=== PATIENT | female | born 1940 | race Caucasian/White ===

== ENCOUNTER 2017-10-27 13:58 | Inpatient (IN) | payer OTHER ==
[2017-10-27] MEDS ORDERED: ZOFRAN ODT PO STA (15:31)
[2017-10-27] MEDS ORDERED: SODIUM CHLORIDE 1,000 ML IV STA (15:36)
[2017-10-27] MEDS ORDERED: PROTONIX IV IVP STA (15:37)
--- NOTE | 2017-10-27 15:38 | ED.PDOC ---
General ED Provider: Dr. CHRISTOPHER OWUSU Chief Complaint: Nausea/Vomiting Stated Complaint: Onset of feeling bad last evening. Has has mutiple episodes on vomiting. Feels week, dizzy and shaky. Very apprehensive over coming to the ER and being stuck with needles. Very anxious. State she never gets sick but think she has the flu. Describes emesis as creamed coffee color. Time Seen by Physician: 14:40 Mode of Arrival: Walk-In Information Source: Patient, Family Exam Limitations: No limitations Nursing and Triage Documentation Reviewed and Agree: Yes Reviewed sepsis parameters & appropriate labs ordered?: Yes System Inflammatory Response Syndrome: Not Applicable Sepsis Protocol: For patient's 13 years and over: Temp is 96.8 and below OR 101 and greater Pulse >90 BPM Resp >20/minute Acutely Altered Mental Status Are patient's symptoms suggestive of a new infection, such as: -Pneumonia -Skin, Soft Tissue -Endocarditis -UTI -Bone, Joint Infection -Implantable Device -Acute Abdominal Infection -Wound Infection -Meningitis -Blood Stream Catheter Infection -Unknown System Inflammatory Response Syndrome: Not Applicable GI Complaint Exam - Vomiting/Diarrhea Complaint/Exam Onset/Duration: Last evening Symptoms Are: Still present Episodes of Vomiting over last 24 Hours: 8 Initial Severity: Moderate Current Severity: Mild Character of Vomiting: Reports: Bilious (Coffee with creamer color) Aggravating: Reports: Liquids, Movement Alleviating: Reports: None Associated Signs and Symptoms: Reports: Dizziness, Light-headedness, Abdominal pain Kussmaul Respirations Present: No Differential Diagnoses: Viral Gastroenteritis, UTI Review of Systems - Review Of Systems Constitutional: Reports: Weakness, Loss of appetite Eyes: Reports: No symptoms Ears, Nose, Mouth, Throat: Reports: No symptoms Respiratory: Reports: No symptoms Cardiac: Reports: No symptoms GI: Reports: Nausea, Vomiting : Reports: No symptoms Musculoskeletal: Reports: No symptoms Skin: Reports: No symptoms Neurological: Reports: Anxiety Endocrine: Reports: No symptoms Hematologic/Lymphatic: Reports: No symptoms All Other Systems: Reviewed and Negative Past Medical History - Past Medical History Previously Healthy: Yes Endocrine: Reports: None Cardiovascular: Reports: None, Other (Denies Hypertension ) Respiratory: Reports: None Hematological: Reports: None Gastrointestinal: Reports: Unknown Genitourinary: Reports: None Neuro/Psych: Reports: None Musculoskeletal: Reports: None Cancer: Reports: None Last Menstrual Period: 1996 - Surgical History General Surgical History: Reports: None - Family History Family History: Reports: None - Social History Smoking Status: Former smoker Hx Substance Use: No Alcohol Screening: None - Immunizations Tetanus Shot up to Date: No Physical Exam - Physical Exam Appearance: Ill-appearing, Well-nourished Ill-appearing: Moderate Pain Distress: Mild Eyes: VARGAS, EOMI, Conjunctiva clear ENT: Ears normal, Nose normal, Oropharynx normal Neck: Supple Respiratory: Airway patent, Breath sounds clear, Breath sounds equal Cardiovascular: RRR, Pulses normal, No rub, No murmur GI/: Soft, Tender, Bowel sounds hypoactive Musculoskeletal: Normal strength, ROM intact Skin: Warm, Dry, Pale Neurological: Sensation intact, Motor intact Psychiatric: Affect appropriate, Mood appropriate Re-Evaluation - Re-Evaluation Time of Re-Evaluation: 19:00 Status: Improved (but still nauseated and spitting up ) Vital Signs Stable: Yes Appearance: NAD Lungs: Clear Skin: Warm and Dry Neuro: Alert and Oriented X3 CV: RRR (Recommend admisson for further treatment-patient and son agree) Critical Care Note - Critical Care Note Total Time (mins): 30 Course - Course Hematology/Chemistry: 10/27/17 15:50 10/27/17 15:50 Orders, Labs, Meds: Lab Review 10/27/17 10/27/17 10/27/17 15:50 15:50 15:50 WBC 9.84 RBC 5.15 Hgb 14.1 Hct 42.8 MCV 83.1 MCH 27.4 MCHC 32.9 RDW Coeff of Summer 14.0 Plt Count 300 Immature Gran % (Auto) 0.3 Neut % (Auto) 78.0 Lymph % (Auto) 12.5 Rhea % (Auto) 6.5 Eos % (Auto) 2.6 Baso % (Auto) 0.1 Immature Gran # (Auto) 0.0 Neut # 7.7 H Lymph # 1.2 Rhea # 0.6 Eos # 0.3 Baso # 0.0 Sodium 139 Potassium 2.9 L Chloride 88 L Carbon Dioxide 33 H Anion Gap 20.9 BUN 9 Creatinine 0.97 Estimated GFR (MDRD) 56.00 BUN/Creatinine Ratio 9.27 Glucose 121 H Calcium 10.9 H Total Bilirubin 0.6 AST 24 ALT 11 L Alkaline Phosphatase 92 Troponin I 0.0230 Total Protein 9.1 H Albumin 4.1 Globulin 5.0 Albumin/Globulin Ratio 0.82 Lipase 16 Influenza A (Rapid) Influenza B (Rapid) Blood Type B POSITIVE Antibody Screen Negative 10/27/17 16:15 WBC RBC Hgb Hct MCV MCH MCHC RDW Coeff of Summer Plt Count Immature Gran % (Auto) Neut % (Auto) Lymph % (Auto) Rhea % (Auto) Eos % (Auto) Baso % (Auto) Immature Gran # (Auto) Neut # Lymph # Rhea # Eos # Baso # Sodium Potassium Chloride Carbon Dioxide Anion Gap BUN Creatinine Estimated GFR (MDRD) BUN/Creatinine Ratio Glucose Calcium Total Bilirubin AST ALT Alkaline Phosphatase Troponin I Total Protein Albumin Globulin Albumin/Globulin Ratio Lipase Influenza A (Rapid) Negative by naat Influenza B (Rapid) Negative by naat Blood Type Antibody Screen Orders Category Date Time Status EKG-(ED ONLY) Stat CARDIO 10/27/17 14:58 Completed CBC W/ AUTO DIFF Stat LAB 10/27/17 15:50 Completed CMP [COMPREHENSIVE METABOLIC PANEL] Stat LAB 10/27/17 15:50 Completed FLU A & B MOLECULAR [FLU A/B MOLECULAR] Stat LAB 10/27/17 16:15 Completed LIPASE Stat LAB 10/27/17 15:50 Completed TROPONIN I Stat LAB 10/27/17 15:50 Completed TYPE AND SCREEN Stat LAB 10/27/17 15:50 Completed URINALYSIS C & S IF INDICATED Stat LAB 10/27/17 15:34 Uncollected Metoprolol Tartrate [Lopressor] MEDS 10/27/17 18:59 Stat 25 mg PO ONCE STA Ondansetron HCl/Pf [Zofran 4 mg/2 ml] MEDS 10/27/17 19:01 Stat 4 mg IVP ONCE STA Ondansetron [Zofran Odt] MEDS 10/27/17 15:31 Discontinued 4 mg PO ONCE STA Pantoprazole Sodium [Protonix IV] MEDS 10/27/17 15:37 Discontinued 40 mg IVP ONCE STA Potassium Chloride Additive [Potassium Chloride 20 Meq MEDS 10/27/17 19:14 Ordered Vial-Additive Only] 20 meq 0.9 % Sodium Chloride [Sodium Chloride] 100 ml IV ONCE Sodium Chloride 0.9% [Sodium Chloride] 1,000 ml MEDS 10/27/17 15:36 Discontinued IV BOLUS Medications Generic Name Dose Route Start Last Admin Trade Name Freq PRN Reason Stop Dose Admin Potassium Chloride 20 meq/ 110 mls @ 50 mls/hr 10/27/17 19:14 Sodium Chloride IV 10/27/17 21:25 ONCE STA Discontinued Medications Generic Name Dose Route Start Last Admin Trade Name Chantelle PRN Reason Stop Dose Admin Sodium Chloride 1,000 mls @ 500 mls/hr 10/27/17 15:36 10/27/17 16:18 Sodium Chloride IV 10/27/17 17:35 500 mls/hr BOLUS STA Administration Metoprolol Tartrate 25 mg 10/27/17 18:59 10/27/17 19:17 Lopressor PO 10/27/17 19:00 25 mg ONCE STA Administration Ondansetron HCl 4 mg 10/27/17 15:31 10/27/17 15:37 Zofran Odt PO 10/27/17 15:32 4 mg ONCE STA Administration Ondansetron HCl 4 mg 10/27/17 19:01 10/27/17 19:18 Zofran 4 Mg/2 Ml IVP 10/27/17 19:02 4 mg ONCE STA Administration Pantoprazole Sodium 40 mg 10/27/17 15:37 10/27/17 16:10 Protonix Iv IVP 10/27/17 15:38 40 mg ONCE STA Administration Vital Signs: Temp Pulse Resp BP Pulse Ox 10/27/17 13:58 98.4 F 105 H 16 180/92 H 95 Departure - Departure Time of Disposition: 19:30 Disposition: ADMITTED INPATIENT Discharge Problem: Gastroenteritis Condition: Fair Pt referred to PMD for follow-up: Yes IPMP verified?: No Additional Instructions: Discussed with Dr Regalado who agrees to admit patient and continue IV rehydration Allergies/Adverse Reactions: Allergies No Known Allergies Allergy (Unverified 10/27/17 14:20) Home Medications: Ambulatory Orders 1 [No Reported Medications] 10/27/17 Disposition Discussed With: Patient, Family (Agreed admission to hosptial to service of Dr Kuo)
[2017-10-27] MEDS ORDERED: LOPRESSOR PO STA (18:59)
[2017-10-27] MEDS ORDERED: ZOFRAN 4 MG/2 ML IVP STA (19:01)
[2017-10-27] MEDS ORDERED: POTASSIUM CHLORIDE 20 MEQ VIAL-ADDITIVE ONLY 20 MEQ in SODIUM CHLORIDE 100 ML IV STA (19:14)
[2017-10-27] MEDS ORDERED: POTASSIUM CHLORIDE 20 MEQ VIAL-ADDITIVE ONLY IV ONE (19:24)
[2017-10-27] MEDS ORDERED: XANAX PO STA (19:35)
--- NOTE | 2017-10-27 20:08 | CT ---
EXAM: CT brain without contrast HISTORY: Headache TECHNIQUE: Multi-slice transaxial helical with coronal and sagital reformated images COMPARISON: None FINDINGS: The midline structures are central. The ventricles are neither dilated nor displaced. Th e sulci are slightly prominent at the high convexities. Moderate low attenuation in the supratentoria l white matter is nonspecific but is likely related to chronic microvascular ischemic disease. No ac [place] intraparenchymal or extraaxial hemorrhagic collections are detected. The calvarium is intact. The visible paranasal sinuses and mastoid air cells are clear. IMPRESSION: 1. No acute intracranial process. 2. Minimal age-related involution and moderate supratentorial chronic microvascular ischemic disease .
--- NOTE | 2017-10-27 20:19 | CT ---
EXAM: CT abdomen and pelvis without contrast HISTORY: Abdominal pain with nausea and vomiting TECHNIQUE: Multi-slice transaxial helical with coronal and sagittal reformed images COMPARISON: None FINDINGS: The heart is mildly enlarged. No pericardial or pleural effusions are detected. The depen dent lungs are atelectatic. The hepatic attenuation is normal relative to the spleen. There are calculi within the gallbladder l umen. The gallbladder peralta are slightly prominent. The common bile duct is slightly prominent. Mu ltiple small calculi are suggested in the distal common bile duct as best appreciated on coronal imag e number 36. The common bile duct is mildly dilated to 8 mm proximal to this region. The pancreatic duct has normal caliber. The pancreas has normal attenuation. There is nodular thickening of the l eft adrenal gland. The largest nodule in the left adrenal gland is 2.4 x 8 1.16 with average Houn[place]d attenuation of 6. An additional left adrenal nodule is 1.7 x 1.4 cm with average Hounsfield atte nuation of 0. The right adrenal gland is normal. The spleen has normal size and attenuation. A small simple cyst is noted at the inferior pole of the left kidney. The kidneys otherwise have nor mal attenuation. Ureters are nondilated. The nonopacified bladder is normal. There are multiple pr obable involuted fibroids. The largest cyst at the uterine fundus with dense calcifications measurin g 4.9 cm. No adnexal lesions are detected. The intestines including appendix have normal caliber. Diverticula arise from the large bowel diffus hayden without CT evidence of diverticulitis. No lymphadenopathy or ascites are appreciated. The bones are free of suspicious osteolytic or osteoblastic lesions. IMPRESSION: 1. Cholelithiasis with possible gallbladder wall thickening. Acute cholecystitis cannot be excluded . In addition, suggestion of choledocholithiasis with multiple small common duct calculi and mild ex trahepatic biliary dilatation. Recommend correlation with a right upper quadrant sonogram. 2. Aortic atherosclerosis. 3. Uterine fibroids. 4. Colonic diverticulosis without CT evidence of diverticulitis. 5. Simple cyst at the inferior pole of the right kidney. 6. Two benign left adrenal adenomas.
[2017-10-27 20:23] VITALS: BMI 23.5
[2017-10-27] MEDS ORDERED: ROCEPHIN 1 GM in SODIUM CHLORIDE 50 ML IV SCH (21:00)
[2017-10-27] MEDS ORDERED: FLAGYL 500 MG/100 ML 100 ML IV ONE (22:49)
[2017-10-27] MEDS ORDERED: ROCEPHIN ONE (22:49)
[2017-10-27] MEDS: FLAGYL 500 MG/100 ML 500 MG in PREMIX 100 ML NS 1 BAG IV SCH (22:54)
[2017-10-28] MEDS ORDERED: TRANDATE IVP STA (02:06)
[2017-10-28] MEDS ORDERED: FLAGYL 500 MG/100 ML 100 ML IV ONE (05:06)
[2017-10-28] MEDS: FLAGYL 500 MG/100 ML 500 MG in PREMIX 100 ML NS 1 BAG IV SCH ×3 (05:10→22:36)
[2017-10-28] MEDS ORDERED: POTASSIUM CHLORIDE 20 MEQ VIAL-ADDITIVE ONLY 20 MEQ in SODIUM CHLORIDE 100 ML IV STA (07:15)
[2017-10-28] MEDS ORDERED: K-DUR PO STA (07:17)
[2017-10-28] MEDS: ZESTRIL PO SCH ×2 (09:05→21:17)
[2017-10-28] MEDS ORDERED: ROCEPHIN 1 GM in SODIUM CHLORIDE 50 ML IV SCH (21:00)
[2017-10-28] MEDS ORDERED: ATIVAN PO ONE (21:54)
[2017-10-29] MEDS: FLAGYL 500 MG/100 ML 500 MG in PREMIX 100 ML NS 1 BAG IV SCH ×2 (04:58→13:27)
[2017-10-29] MEDS ORDERED: CITRATE OF MAGNESIA PO STA (09:01)
[2017-10-29] MEDS: ZESTRIL PO SCH (09:09)
[2017-10-29 10:17] VITALS: BP 118/69; TEMP 97.7
--- NOTE | 2017-10-29 12:59 | HP ---
DATE OF SERVICE: 10/27/17 CHIEF COMPLAINT: Nausea and vomiting. HISTORY OF PRESENT ILLNESS: This is a 76-year-old female, who has never seen a doctor in 30 years. She became sick with vomiting yesterday evening. Early in the morning she started vomiting brown liquid and the whole days she was vomiting on and off, unable to keep anything down. She had a BM yesterday and was constipated. She had mid epigastric pain and back pain, sharp in type, radiating, rated 4/10. She was seen by ER physician, Dr. Alicea. White count normal. Temperature afebrile. Potassium was 2.9, glucose 121. At that time, the patient was admitted to the hospital with hypokalemia and dehydration. Given her history of blood pressure elevation and abdominal pain, I did tell them to order a CT of the abdomen and pelvis and CT head. CT of the abdomen showed chronic cholecystitis vs acute but the patient does not have any localizing signs on the belly other than epigastric discomfort but no right upper quadrant tenderness. At that time, the patient is admitted to the hospital for IV hydration, potassium and IV antibiotics. REVIEW OF SYSTEMS: CONSTITUTIONAL: No fever, no chills. HEENT: Normal. ENDOCRINE: No weight gain; no weight loss. CVS: No chest pain. No PND, no orthopnea. No shortness of breath. No PND, no orthopnea. RESPIRATORY: No cough, no congestion. No hemoptysis. GI: Nausea and vomiting. Epigastric pain. No melena. : No hematuria. No polyuria. MUSCULOSKELETAL: No joint swelling. PSYCHIATRIC: Not anxious. No depression. No suicidal thoughts. No homicidal thoughts. SKIN: Intact, no open lesions. PAST MEDICAL HISTORY: Last time she saw a doctor was 30 years ago. She has a history of hypertension but does not take any medication. PAST SURGICAL HISTORY: None PERSONAL HISTORY: Does not smoke or drink. FAMILY HISTORY: Significant for heart problems. MEDICATIONS: (HOME) None ALLERGIES: NKDA PHYSICAL EXAMINATION: V/S: BP 180/92 then 200/91, respiratory rate 20, heart rate 88, temperature 97.7. HEENT: Atraumatic, normocephalic. No scleral icterus. Pallor positive. Mucosa dry. NECK: Supple. No JVD, no bruit. No lymphadenopathy. No thyromegaly. HEART: S1, S2 normal. Positive systolic murmur. No cyanosis or clubbing. No ascites. LUNGS: Decreased and clear to auscultation. No rales or rhonchi. ABDOMEN: Epigastric discomfort present. Soft. Bowel sounds are active. No CVA tenderness. No rigidity or guarding. EXTREMITIES: No pedal edema. No cyanosis or clubbing MUSCULOSKELETAL: Normal joints, no swelling. NEUROLOGIC: The patient is awake and alert. SKIN: Intact; no open lesions. LYMPHATIC: No lymph nodes palpable. LABS: Sodium 139, potassium 2.9, chloride 88, bicarb 33, BUN 9, creatinine 0.97, glucose normal. AST/ALT normal. Total bilirubin is normal. White count 9.84, hemoglobin 14.1, hematocrit 32.8, platelet count 300. ASSESSMENT: 1. ACUTE GASTROENTERITIS 2. CHRONIC CHOLECYSTITIS 3. HYPERTENSION 4. ANXIETY 5. HYPOKALEMIA, SEVERE PLAN: 1. Admit the patient to the regular floor. 2. CBC and CMP today and daily. 3. Cardiac enzymes and troponin. 4. IV fluids with potassium. 5. Rocephin and Flagyl. 6. Xanax for night. TIME SPENT: MORE THAN 75 minutes for admission. [facility]
--- NOTE | 2017-10-29 14:25 | PN ---
DATE OF SERVICE: 10/28/17 SUBJECTIVE: The patient was admitted with gastroenteritis, hypokalemia. CT did show some cholecystitis but the patient does not have any abdominal pain, nausea, vomiting and no fever or chills right now. REVIEW OF SYSTEMS: CONSTITUTIONAL: No fever, no chills. HEENT: Normal. ENDOCRINE: No weight gain, no weight loss. CVS: No angina symptoms. No CHF symptoms. No palpitations. No atypical chest pain for CAD. No shortness of breath. No PND, no orthopnea. RESPIRATORY: No cough, no hemoptysis. GI: No nausea, no vomiting. No abdominal pain. : No hematuria. No polyuria. MUSCULOSKELETAL: No joint swelling. PSYCHIATRIC: Not anxious. No depression. No suicidal thoughts. No homicidal thoughts. SKIN: Intact. No rash. PHYSICAL EXAMINATION: V/S: Blood pressure 197/81, respiratory rate 21, heart rate 71, temperature 98.4 with saturation 97 on the room air. HEENT: Normocephalic, atraumatic. Mucosa dry. Pallor positive. No icterus. NECK: Supple. No JVD, no carotid bruit. No lymphadenopathy. LUNGS: Clear to auscultation. No rales or rhonchi. HEART: S1, S2 normal. No S3. No murmur, gallop or regurgitation. ABDOMEN: Soft, nontender. No epigastric tenderness. No right upper quadrant tenderness. Bowel sounds active. No rigidity. No rebound or guarding. No CVA tenderness. EXTREMITIES: No pedal edema. No clubbing or cyanosis MUSCULOSKELETAL: No joint swelling. NEUROLOGIC: Awake, alert, oriented times three. No focal deficit. LYMPHATIC: No lymph nodes palpable. SKIN: Intact. LABS: WBC 12.84, hgb 12.1, hct 35.7, plt count 233, sodium 139, potassium 2.9, chloride 96, bicarb 31, BUN 15, creatinine 0.88 and glucose 150. ASSESSMENT: 1. Acute gastroenteritis 2. Severe hypokalemia 3. Chronic cholecystitis 4. Hypertension PLAN: 1. CT scan findings discussed with the patient in detail Explained as patient does not have any symptoms of the gallbladder only CAT scan is showing it. No right upper quadrant tenderness. No fever, no chills, no nausea and vomiting. 2. We are going to treat with IV antibiotic Rocephin and Flagyl 3. Start the patient on the Lisinopril 20mg twice a day Will follow the patient in daily rounds. TIME SPENT: More than 35 minutes MTDD
--- NOTE | 2017-11-08 10:54 | DS ---
DATE OF SERVICE: 10/29/17 FINAL DIAGNOSIS: 1. Acute gastroenteritis 2. Severe hypokalemia 3. Cholelithiasis with no clinical symptoms of right upper quadrant tenderness of Adams sign; no fever and no elevated white count. 4. Hypertension, no medication but will be starting on Lisinopril now. 5. Anxiety disorder will start on Xanax 0.25 twice a day DISCHARGE INSTRUCTIONS: Discharge the patient home. Followup in the office within one week. MEDICATIONS AT DISCHARGE/NEW PRESCRIPTIONS: Cipro 250mg twice a day for 5 days Lisinopril 20mg PO daily Xanax 0.25mg twice a day DIET INSTRUCTIONS: Soft diet for one week. ACTIVITY: As much as tolerated. SMOKING: Former smoker DISEASE SPECIFIC EDUCATION: Cholelithiasis Risk of gallbladder attack with fatty meal been discussed and verbalized understanding. HOSPITAL COURSE: Diana Pringle who is a 76 year old female never seen an doctor in 30 years came to the emergency room with nausea, vomiting, diarrhea. Potassium was 4.9. Dr. Castano saw the patient and admitted the patient. The patient did have some epigastric tenderness, normal WBC with no fever and chills. With the given history of being to the doctors for 30 years I ordered a [address] of abdomen and pelvis which did show Choledochal Cholelithiasis but normal AST and ALT and normal Alkaline phosphatase. The patient did not have any Adams sign. WBC was normal with no fever or chills, not septic. Admitted the hospital started on the Rocephin and Flagyl and replaced the Potassium. Came up from 2.9, 2.9 then 3.4. The patient's stay during the hospital was uneventful. The patient was perfectly fine. Blood pressure was high so the Lisinopril was started. Xanax was given as patient was anxiety. As the patient's condition is improved up and about walking no more vomiting, nausea and no abdominal pain at that time the discharge plan was made and the patient being discharged today home. I will be seeing the patient within one week. Meanwhile if increase in the abdominal pain , nausea or vomiting please go to the [facility] Emergency Room. TIME SPENT: MORE THAN 65 MINUTES MTDD
== END 2017-10-29 14:00 | disposition home or self-care (01) | DRG 392 ==
LOC: ED 13:58 → MEDSURG A 19:30
PROVIDERS: ADMIT Emergency Medicine; ATTEND Emergency Medicine
DX: K52.9 Noninfective gastroenteritis and colitis, unspecified (principal); R42 Dizziness and giddiness; R10.9 Unspecified abdominal pain; Z87.891 Personal history of nicotine dependence; E87.6 Hypokalemia; K81.1 Chronic cholecystitis; I10 Essential (primary) hypertension; F41.9 Anxiety disorder, unspecified
CPT/HCPCS: 36415; 80053; 81001; 82550; 82553; 83690; 84484; 85025; 86850; 86900; 87086; 87502; 93005; 93010; 96361; 96365; 96375; 99284

== ENCOUNTER 2017-10-31 14:24 | Emergency (ER) ==
[2017-10-31 14:38] VITALS: TEMP 98.5; BMI 23.3
--- NOTE | 2017-10-31 15:37 | US ---
EXAM: Limited abdominal ultrasound. History: Abdominal pain. Comparison: CT abdomen pelvis 10/31/2017 Technique: Multiple sonographic images through the abdomen were obtained. Color duplex Doppler was used to interrogate vascular flow. Findings: No focal liver lesions identified sonographically. The visualized pancreas demonstrates no gross abn ormality. No abdominal ascites. There is antegrade flow within the main portal vein. Cholelithiasi s and gallbladder wall thickening. Common bile duct is dilated measuring 7 mm in caliber. There is probable choledocholithiasis. Impression: 1. Acute cholecystitis. 2. Dilated common bile duct and probable choledocholithiasis.
--- NOTE | 2017-10-31 15:53 | CT ---
Exam: CT of the abdomen pelvis without intravenous contrast. Comparison: 10/27/2017. Reason for exam: Pain. FINDINGS: Mild basilar atelectasis without pleural effusion, or focal consolidation in the partially imaged lung bases. Image interpretation is limited by the lack of intravenous contrast administration. The liver is lower in attenuation in the spleen. Multiple stones are seen within the and portion of the gallbladder with gallbladder wall thickening. There is also likely a stone within the common bile duct. The splenic parenchyma, and pancreas appe ar grossly unremarkable within limitations of a noncontrasted study. Low density nodules are seen in the left adrenal gland not significantly changed from the previous CT performed on 10/27/2017. No hydronephrosis, hydroureter, or nephrolithiasis is seen in either kidne y. The bladder appears grossly unremarkable. There is atherosclerotic disease of the aorta and distal arterial vasculature. No focal small bowel dilatation or transition point. The appendix appears grossly unremarkable. Multiple calcifications are seen within the uterus likely fibroid disease. The bladder is grossly unremarkable. Degenerative changes seen in the lumbosacral spine with vacuum disc phenomenon and osteophyte formati on. Diverticular disease is seen without surrounding inflammatory change. Impression: 1. Imaging findings are most consistent with cholecystitis and likely choledochlolithiasis. 2. Uterine fibroid disease. 3. Diverticulosis without evidence of diverticulitis. 4. Left adrenal hypodensities are likely adenomas. Report faxed at [id number] hours on 10/31/2017.
[2017-10-31] MEDS ORDERED: MORPHINE 2 MG/ML SYRINGE IVP STA (16:52)
[2017-10-31] MEDS ORDERED: SODIUM CHLORIDE 1,000 ML IV STA (16:52)
[2017-10-31] MEDS ORDERED: PHENERGAN 25 MG/ML VIAL 25 MG in SODIUM CHLORIDE 50 ML IV STA (16:53)
--- NOTE | 2017-10-31 16:56 | ED.PDOC ---
General ED Provider: Dr. DANK MONTERROSO Chief Complaint: Abdominal Pain Stated Complaint: abdominal pain Time Seen by Physician: 14:30 (seen at [facility] ED a few days ago for same issue ) Information Source: Patient Exam Limitations: No limitations Primary Care Provider: RIGOBERTO LA Referred to ED by: Other (finding on CT on the 10/27/17 was postive gor gall bladder wall thickeningacute cholecystitis could not be ruled out) Nursing and Triage Documentation Reviewed and Agree: Yes (LAST MEAL WAS THIS MORNINGT 9M 2 EGGS SHE VOMITED IT ) Reviewed sepsis parameters & appropriate labs ordered?: Yes System Inflammatory Response Syndrome: Not Applicable Sepsis Protocol: For patient's 13 years and over: Temp is 96.8 and below OR 101 and greater Pulse >90 BPM Resp >20/minute Acutely Altered Mental Status Are patient's symptoms suggestive of a new infection, such as: -Pneumonia -Skin, Soft Tissue -Endocarditis -UTI -Bone, Joint Infection -Implantable Device -Acute Abdominal Infection -Wound Infection -Meningitis -Blood Stream Catheter Infection -Unknown System Inflammatory Response Syndrome: Not Applicable GI Complaint Exam - Abdominal Pain Complaint/Exam Onset: Gradual Duration: about 4 days Symptoms Are: Still present Timing: Intermittent Initial Severity: Moderate Current Severity: Moderate Location of Pain: RUQ Radiates To: Reports: Chest (right side ) Character: Reports: Cramping, Colicky Alleviating: Reports: None Associated Signs and Symptoms: Reports: Decreased appetite, Nausea. Denies: Diaphoresis, Fever, Cough, Chest pain, Dizziness, Back pain, Constipation, Blood in stool, Dysuria, Urinary frequency, Decreased urine output, Vaginal bleeding, Vaginal discharge, Vomiting, Diarrhea, Sore throat, Decreased activity Related History: Reports: Similar episode AAA Risk Factors: Reports: None Cardiac Risk Factors: Reports: None Ectopic Risk Factors: Reports: None Surgical Obstruction Risk Factors: Reports: None Related Surgical History: Reports: None Patient Rh Status: Unknown Differential Diagnoses: ACS, Appendicitis, Bowel Obstruction, Constipation, Diverticulitis, Gastroenteritis, GB Quality Indicator For Non-Traumatic Chest Pain/Syncope: EKG Performed Review of Systems - Review Of Systems Constitutional: Reports: Malaise, Weakness, Loss of appetite Eyes: Reports: No symptoms Ears, Nose, Mouth, Throat: Reports: No symptoms Respiratory: Reports: No symptoms Cardiac: Reports: No symptoms GI: Reports: Abdominal pain, Nausea, Poor appetite, Poor fluid intake : Reports: No symptoms Musculoskeletal: Reports: No symptoms Skin: Reports: No symptoms Neurological: Reports: No symptoms Endocrine: Reports: No symptoms Hematologic/Lymphatic: Reports: No symptoms All Other Systems: Reviewed and Negative Past Medical History - Past Medical History Previously Healthy: Yes Endocrine: Reports: None Cardiovascular: Reports: None, Other (Denies Hypertension ) Respiratory: Reports: None Hematological: Reports: None Gastrointestinal: Reports: Unknown Genitourinary: Reports: None Neuro/Psych: Reports: None Musculoskeletal: Reports: None Cancer: Reports: None Last Menstrual Period: unknown - Surgical History General Surgical History: Reports: None - Family History Family History: Reports: None - Social History Smoking Status: Former smoker Hx Substance Use: No Alcohol Screening: None Physical Exam - Physical Exam Appearance: Ill-appearing Ill-appearing: Moderate Pain Distress: Moderate Eyes: VARGAS, EOMI, Conjunctiva clear ENT: Ears normal, Nose normal, Oropharynx normal Respiratory: Airway patent, Breath sounds clear, Breath sounds equal, Respirations nonlabored Cardiovascular: RRR, Pulses normal, No rub, No murmur GI/: Tender (RUQ) Musculoskeletal: Normal strength, ROM intact, No edema, No calf tenderness Skin: Warm, Dry, Normal color Neurological: Sensation intact, Motor intact, Reflexes intact, Cranial nerves intact, Alert, Oriented Psychiatric: Affect appropriate, Mood appropriate Interpretation - Radiology Interpretation Radiology Interpretation By: Radiologist Radiology Results: Positive (acute choly/with choledochlothiasis) Physician Notification - Case Discussed Physician Notified: LIAM Time of Notification: 17:23 (MUST CONTACT HOSPITALIST PER SURGEON ) Critical Care Note - Critical Care Note Total Time (mins): 0 Course - Course Hematology/Chemistry: 10/31/17 15:59 10/31/17 15:59 Orders, Labs, Meds: Lab Review 10/31/17 10/31/17 10/31/17 15:59 15:59 15:59 WBC 10.71 H RBC 4.97 Hgb 13.8 Hct 41.6 D MCV 83.7 MCH 27.8 MCHC 33.2 RDW Coeff of Summer 14.0 Plt Count 253 Immature Gran % (Auto) 0.4 Neut % (Auto) 81.2 Lymph % (Auto) 10.1 Lamb % (Auto) 5.5 Eos % (Auto) 2.4 Baso % (Auto) 0.4 Immature Gran # (Auto) 0.0 Neut # 8.7 H Lymph # 1.1 Lamb # 0.6 Eos # 0.3 Baso # 0.0 PT INR APTT Sodium 136 Potassium 3.5 Chloride 90 L Carbon Dioxide 31 Anion Gap 18.5 BUN 10 Creatinine 0.80 Estimated GFR (MDRD) 70.00 BUN/Creatinine Ratio 12.50 Glucose 118 H Calcium 10.5 H Total Bilirubin 0.7 AST 29 ALT 13 Alkaline Phosphatase 85 D Total Creatine Kinase 102 Troponin I 0.0130 Total Protein 8.6 H Albumin 4.0 Globulin 4.6 Albumin/Globulin Ratio 0.87 Procalcitonin < 0.05 Urine Color Urine Clarity Urine pH Ur Specific [place] Urine Protein Urine Glucose (UA) Urine Ketones Urine Blood Urine Nitrite Urine Bilirubin Urine Urobilinogen Ur Leukocyte Esterase Urine Microscopic RBC Ur Squamous Epith Cells Urine Bacteria 10/31/17 10/31/17 16:13 17:28 WBC RBC Hgb Hct MCV MCH MCHC RDW Coeff of Summer Plt Count Immature Gran % (Auto) Neut % (Auto) Lymph % (Auto) Lamb % (Auto) Eos % (Auto) Baso % (Auto) Immature Gran # (Auto) Neut # Lymph # Lamb # Eos # Baso # PT 10.3 INR 1.01 APTT 24.6 Sodium Potassium Chloride Carbon Dioxide Anion Gap BUN Creatinine Estimated GFR (MDRD) BUN/Creatinine Ratio Glucose Calcium Total Bilirubin AST ALT Alkaline Phosphatase Total Creatine Kinase Troponin I Total Protein Albumin Globulin Albumin/Globulin Ratio Procalcitonin Urine Color Yellow Urine Clarity Clear Urine pH 8.5 Ur Specific [place] 1.015 Urine Protein Trace Urine Glucose (UA) Negative Urine Ketones 2+ Urine Blood 2+ Urine Nitrite Negative Urine Bilirubin Negative Urine Urobilinogen 0.2 Ur Leukocyte Esterase Negative Urine Microscopic RBC 2-5 Ur Squamous Epith Cells 0-2 Urine Bacteria Trace Orders Category Date Time Status EKG-(ED ONLY) Stat CARDIO 10/31/17 16:57 Completed NPO REMINDER: IMAGING ONCE CARE 10/31/17 14:52 Completed ED IV/MEDIPORT/POWERPORT .ONCE EMERGENCY 10/31/17 16:06 Active BLOOD CULTURE (ED ONLY) Stat LAB 10/31/17 15:59 Results CBC W/ AUTO DIFF Stat LAB 10/31/17 15:59 Completed COMPREHENSIVE METABOLIC PANEL Stat LAB 10/31/17 15:59 Completed CREATINE KINASE Stat LAB 10/31/17 15:59 Completed PARTIAL THROMBOPLASTIN TIME Stat LAB 10/31/17 17:28 Completed PROCALCITONIN Stat LAB 10/31/17 15:59 Completed PT WITH INR Stat LAB 10/31/17 17:28 Completed TROPONIN I Stat LAB 10/31/17 15:59 Completed UA [URINALYSIS C & S IF INDICATED] Stat LAB 10/31/17 16:13 Completed 0.9 % Sodium Chloride [Premix 200Ml 0.86% Sodium MEDS 10/31/17 19:00 Discontinued Chloride] 1 bag Nicardipine in NaCl, Iso-Osm [Cardene-NaCl 20 mg/200 ml Soln] 20 mg IV 5 mg/hr 0.9 % Sodium Chloride [Saline Flush] MEDS 10/31/17 16:07 Discontinued 1 syr IVF PRN PRN Enalaprilat Dihydrate [Vasotec IV] MEDS 10/31/17 18:15 Discontinued 1.25 mg IVP ONCE STA Labetalol HCl [Trandate] MEDS 10/31/17 18:50 Discontinued 20 mg IVP ONCE STA Morphine Sulfate [Morphine 2 mg/ml Syringe] MEDS 10/31/17 16:52 Discontinued 2 mg IVP ONCE STA Promethazine HCl [Phenergan 25 mg/ml Vial] MEDS 10/31/17 17:13 Discontinued 25 mg .ROUTE .STK-MED ONE Promethazine HCl [Phenergan 25 mg/ml Vial] 25 mg MEDS 10/31/17 16:53 Discontinued 0.9 % Sodium Chloride [Sodium Chloride] 50 ml IV ONCE Sodium Chloride 0.9% [Sodium Chloride] 1,000 ml MEDS 10/31/17 16:52 Discontinued IV 125 mls/hr CT ABDOMEN/PELVIS WO CONTRAST Stat RADS 10/31/17 14:52 Completed ULTRASOUND ABDOMEN, RT. UPPER QUAD [U/S ABDOMEN, RT. RADS 10/31/17 14:52 Completed UPPER QUAD] Stat Medications Discontinued Medications Generic Name Dose Route Start Last Admin Trade Name Freq PRN Reason Stop Dose Admin Enalaprilat 1.25 mg 10/31/17 18:15 10/31/17 18:20 Vasotec Iv IVP 10/31/17 18:16 1.25 mg ONCE STA Administration Sodium Chloride 1,000 mls @ 125 mls/hr 10/31/17 16:52 10/31/17 17:42 Sodium Chloride IV 11/01/17 00:51 125 mls/hr .Q8H STA Administration Promethazine HCl 25 mg/ Sodium 51 mls @ 75 mls/hr 10/31/17 16:53 10/31/17 17: 43 Chloride IV 10/31/17 17:33 75 mls/hr ONCE STA Administration NICARDIPINE IN NACL, ISO-OSM 200 mls @ 50 mls/hr 10/31/17 19:00 20 mg/ Sodium Chloride IV .Q4H ASHWIN Protocol 5 MG/HR Labetalol HCl 20 mg 10/31/17 18:50 10/31/17 19:04 Trandate IVP 10/31/17 18:51 20 mg ONCE STA Administration Morphine Sulfate 2 mg 10/31/17 16:52 10/31/17 17:42 Morphine 2 Mg/Ml Syringe IVP 10/31/17 16:53 2 mg ONCE STA Administration Sodium Chloride 1 syr 10/31/17 16:07 10/31/17 19:05 Saline Flush IVF 1 syr PRN PRN Administration To flush IV Vital Signs: Temp Pulse Resp BP Pulse Ox 10/31/17 20:03 190/86 H 10/31/17 19:35 201/93 H 10/31/17 19:21 204/96 H 10/31/17 19:06 200/78 H 10/31/17 19:00 210/90 H 10/31/17 18:30 247/131 H 10/31/17 18:18 244/98 H 10/31/17 18:04 236/103 H 10/31/17 17:57 80 246/96 H 10/31/17 14:31 98.5 F 91 H 20 196/117 H 97 Departure - Departure Time of Disposition: 19:00 Disposition: TSF SHORT-TRM HOSP Discharge Problem: Abdominal pain, Acute cholecystitis Instructions: Cholecystitis (ED), Biliary Colic (ED) Condition: Good Pt referred to PMD for follow-up: Yes IPMP verified?: No Additional Instructions: Please call your Family Physician as soon as possible to schedule a follow-up appointment. Allergies/Adverse Reactions: Allergies No Known Allergies Allergy (Verified 10/31/17 14:39) Home Medications: Ambulatory Orders Alprazolam [Xanax] 0.25 mg PO BEDTIME #10 tablet 10/29/17 Ciprofloxacin HCl [Cipro] 250 mg PO BID #14 tablet 10/29/17 Lisinopril 20 mg PO BID #60 tablet 10/29/17 Pantoprazole Sodium [Protonix] 40 mg PO QDAC #30 tablet. 10/29/17 Disposition Discussed With: Patient, Family
[2017-10-31] MEDS ORDERED: PHENERGAN 25 MG/ML VIAL ONE (17:13)
[2017-10-31] MEDS ORDERED: VASOTEC IV IVP STA (18:15)
[2017-10-31] MEDS ORDERED: TRANDATE IVP STA (18:50)
[2017-10-31] MEDS ORDERED: CARDENE-NACL 20 MG/200 ML SOLN 20 MG in PREMIX 200ML 0.86% SODIUM CHLORIDE 1 BAG IV SCH (19:00)
[2017-10-31 20:04] VITALS: BP 190/86
== END 2017-10-31 20:15 | disposition short-term general hospital (02) ==
LOC: ED 14:24
DX: K81.0 Acute cholecystitis (principal); R10.9 Unspecified abdominal pain; I10 Essential (primary) hypertension; R53.83 Other fatigue; R40.4 Transient alteration of awareness; Z79.899 Other long term (current) drug therapy
CPT/HCPCS: 36415; 80053; 81001; 82550; 84145; 84484; 85025; 85610; 85730; 87040; 93005; 93010; 96361; 96365; 96375; 99285

== ENCOUNTER 2018-06-20 19:39 | Emergency (ER) ==
[2018-06-20 19:42] VITALS: TEMP 98.7; BMI 21.6
[2018-06-20] MEDS ORDERED: CATAPRES PO STA (19:49)
[2018-06-20] MEDS ORDERED: NORCO 5-325 PO STA (19:49)
--- NOTE | 2018-06-20 19:52 | ED.PDOC ---
General ED Provider: Dr. ABBY BLACKBURN Chief Complaint: Wrist Pain/Injury Stated Complaint: Patient is a 77 year old female who comes to the ER after she accidentally shut the door at home on her right wrist. Now has severe pain. Also admit to not taking her blood presure medications. Time Seen by Physician: 19:50 Mode of Arrival: Walk-In Information Source: Patient, Family Primary Care Provider: [facility] Nursing and Triage Documentation Reviewed and Agree: Yes Does patient meet sepsis criteria?: No System Inflammatory Response Syndrome: Not Applicable Sepsis Protocol: For patient's 13 years and over: Temp is 96.8 and below OR 101 and greater Pulse >90 BPM Resp >20/minute Acutely Altered Mental Status Are patient's symptoms suggestive of a new infection, such as: -Pneumonia -Skin, Soft Tissue -Endocarditis -UTI -Bone, Joint Infection -Implantable Device -Acute Abdominal Infection -Wound Infection -Meningitis -Blood Stream Catheter Infection -Unknown Musculoskeletal Complaint Exam - Hand/Wrist Complaint/Exam Location of Pain: Reports: Right, Wrist Mechanism of Injury: Reports: Trauma (with car door ) Onset/Duration: 2 hours ago Symptoms Are: Still present Onset of Pain: Reports: Immediate Initial Severity: Severe Current Severity: Moderate Location: Reports: Radiating Character: Reports: Aching, Throbbing Alleviating: Reports: None Aggravating: Reports: Movement Associated Signs and Symptoms: Reports: Swelling Related History: Denies: Similar episode, Occupational injury Dominant Hand: Right Related Surgical History: Reports: Right Hand/Wrist Findings: Present: Swelling, Ecchymosis Tenderness: Present: Radius, Ulna, Metacarpal Compartment Syndrome Risk Factors: Present: Pain. Absent: Paralysis, Pallor, Pulselessness, Paresthesias Hand Picture: 1 - pain and Tenderness to palpation Differential Diagnoses: Closed Fracture, Sprain, Strain Review of Systems - Review Of Systems Constitutional: Reports: No symptoms Eyes: Reports: No symptoms Ears, Nose, Mouth, Throat: Reports: No symptoms Respiratory: Reports: No symptoms Cardiac: Reports: No symptoms GI: Reports: No symptoms : Reports: No symptoms Musculoskeletal: Reports: No symptoms Skin: Reports: No symptoms Neurological: Reports: Anxiety Endocrine: Reports: No symptoms Hematologic/Lymphatic: Reports: No symptoms All Other Systems: Reviewed and Negative Past Medical History - Past Medical History Previously Healthy: Yes Endocrine: Reports: None Cardiovascular: Reports: Hypertension Respiratory: Reports: None Hematological: Reports: None Gastrointestinal: Reports: Gallstones Genitourinary: Reports: None Neuro/Psych: Reports: Anxiety Musculoskeletal: Reports: None Cancer: Reports: None Last Menstrual Period: none - Surgical History General Surgical History: Reports: None - Family History Family History: Reports: None - Social History Smoking Status: Former smoker Hx Substance Use: No Alcohol Screening: None - Immunizations Tetanus Shot up to Date: Yes Physical Exam - Physical Exam Appearance: Well-appearing Pain Distress: Severe Respiratory: Airway patent, Breath sounds clear, Breath sounds equal, Respirations nonlabored Cardiovascular: RRR, Pulses normal, No rub, No murmur Musculoskeletal: Limited ROM, Edema Skin: Warm, Dry Neurological: Cranial nerves intact, Alert, Oriented Psychiatric: Anxious Re-Evaluation - Re-Evaluation Time of Re-Evaluation: 22:00 Status: Improved Vital Signs Stable: Yes (bp 161/90) Critical Care Note - Critical Care Note Total Time (mins): 45 (managing uncontrolled blood pressure ) Course - Course Hematology/Chemistry: 06/20/18 20:31 06/20/18 20:31 Orders, Labs, Meds: Lab Review 06/20/18 06/20/18 20:31 20:31 WBC 10.31 H RBC 4.02 L Hgb 11.1 L Hct 33.9 L MCV 84.3 MCH 27.6 MCHC 32.7 RDW Coeff of Summer 14.1 Plt Count 214 Immature Gran % (Auto) 0.2 Neut % (Auto) 76.3 Lymph % (Auto) 15.3 [place] % (Auto) 6.7 Eos % (Auto) 1.2 Baso % (Auto) 0.3 Immature Gran # (Auto) 0.0 Neut # (Auto) 7.9 H Lymph # (Auto) 1.6 [place] # (Auto) 0.7 Eos # (Auto) 0.1 Baso # (Auto) 0.0 Sodium 134.2 L Potassium 3.30 L Chloride 95.7 L Carbon Dioxide 29.0 Anion Gap 12.80 BUN 11.0 Creatinine 0.63 Estimated GFR (MDRD) 91.00 BUN/Creatinine Ratio 17.46 Glucose 110.8 H Calcium 9.08 Total Bilirubin 0.48 AST 29.0 ALT 9.9 Alkaline Phosphatase 84.1 Total Protein 7.32 Albumin 4.06 Globulin 3.26 Albumin/Globulin Ratio 1.24 Orders Category Date Time Status ED APPLY ICE AFFECTED AREA .ONCE EMERGENCY 06/20/18 19:49 Active ED SPLINT APPLICATION .ONCE EMERGENCY 06/20/18 19:49 Active CBC W/ AUTO DIFF Stat LAB 06/20/18 20:31 Completed COMPREHENSIVE METABOLIC PANEL Stat LAB 06/20/18 20:31 Completed Clonidine HCl [Catapres] MEDS 06/20/18 19:49 Discontinued 0.1 mg PO ONCE STA Hydrocodone Bit/Acetaminophen [[place] 5-325] MEDS 06/20/18 19:49 Discontinued 1 tab PO ONCE STA Labetalol HCl [Trandate] MEDS 06/20/18 20:26 Discontinued 20 mg IVP ONCE STA WRIST, RIGHT 3 VIEWS Stat RADS 06/20/18 19:49 Completed Medications Discontinued Medications Generic Name Dose Route Start Last Admin Trade Name Freq PRN Reason Stop Dose Admin Hydrocodone Bitart/Acetaminophen 1 tab 06/20/18 19:49 06/20/18 19:54 [place] 5-325 PO 06/20/18 19:50 1 tab ONCE STA Administration Clonidine 0.1 mg 06/20/18 19:49 06/20/18 19:54 Catapres PO 06/20/18 19:50 0.1 mg ONCE STA Administration Labetalol HCl 20 mg 06/20/18 20:26 06/20/18 20:37 Trandate IVP 06/20/18 20:27 20 mg ONCE STA Administration Vital Signs: Temp Pulse Resp BP Pulse Ox 06/20/18 22:04 161/90 H 06/20/18 21:38 175/88 H 06/20/18 21:02 181/92 H 06/20/18 20:48 186/111 H 06/20/18 20:39 77 15 221/125 H 97 06/20/18 20:13 94 H 245/110 H 06/20/18 19:55 94 H 20 253/129 H 06/20/18 19:39 98.7 F 98 H 20 210/130 H 95 Departure - Departure Time of Disposition: 22:00 Disposition: HOME SELF-CARE Discharge Problem: Asymptomatic hypertensive urgency Right wrist injury Qualifiers: Encounter type: initial encounter Qualified Code(s): S69.91XA - Unspecified injury of right wrist, hand and finger(s), initial encounter Displaced fracture of right ulna Qualifiers: Encounter type: initial encounter Ulna location: distal physis (incl. Sal[place]- Chapa) Qualified Code(s): S59.001A - Unspecified physeal fracture of lower end of ulna, right arm, initial encounter for closed fracture Instructions: Wrist Fracture in Adults (ED), Hypertensive Crisis (ED) Condition: Stable Pt referred to PMD for follow-up: Yes IPMP verified?: No Additional Instructions: call your PCP to get an Apt for referral to Orthopedic Doctor Take your blood pressure medications Monitor your blood pressure and take reading to PCP Return if worse Prescriptions: Hydrocodone Bit/Acetaminophen [[place] 5-325] 1 each PO Q6HR PRN #15 tablet PRN Reason: severe pain Hydrochlorothiazide 25 mg PO DAILY #30 tablet Allergies/Adverse Reactions: Allergies No Known Allergies Allergy (Verified 06/20/18 19:43) Home Medications: Ambulatory Orders Hydrochlorothiazide 25 mg PO DAILY #30 tablet 06/20/18 Hydrocodone Bit/Acetaminophen [[place] 5-325] 1 each PO Q6HR PRN #15 tablet
--- NOTE | 2018-06-20 20:17 | DI ---
EXAM: Right wrist three views HISTORY: Trauma COMPARISON: None. FINDINGS: Marked degenerative changes noted about the first carpometacarpal joint with milder change s involve the radiocarpal joint. There is a mildly displaced fracture involving the distal ulna with one half width dorsal displacement of the distal fracture fragment. There is surrounding soft tissu e swelling. IMPRESSION: Displaced distal ulnar fracture with surrounding soft tissue swelling. Osteoarthritic degenerative changes
[2018-06-20] MEDS ORDERED: TRANDATE IVP STA (20:26)
[2018-06-20 22:05] VITALS: BP 161/90
== END 2018-06-20 22:08 | disposition home or self-care (01) ==
LOC: ED 19:39
DX: S59.001A Unspecified physeal fracture of lower end of ulna, right arm, initial encounter for closed fracture (principal); I16.0 Hypertensive urgency; W22.8XXA Striking against or struck by other objects, initial encounter; Z91.14 Patient's other noncompliance with medication regimen
CPT/HCPCS: 36415; 80053; 85025; 96375; 99283

== ENCOUNTER 2022-09-06 14:21 | Inpatient (IN) ==
--- NOTE | 2022-09-06 14:34 | ED.PDOC ---
General ED Provider: Dr. SHAUN HAQUE Chief Complaint: Altered Mental Status Stated Complaint: Hx Alzheimer's dementia (per son) with worsening over past few days, not wanting to eat or drink easily agitated, no fall or fever. Time Seen by Provider: 09/06/22 14:33 Mode of Arrival: Ambulance Information Source: Patient and Family Exam Limitations: Dementia and Altered mental status Primary Care Provider: Unknown Nursing and Triage Documentation Reviewed and Agree: Yes Does patient meet sepsis criteria?: No System Inflammatory Response Syndrome: Not Applicable Sepsis Protocol: For patient's 13 years and over: Temp is 96.8 and below OR 101 and greater Pulse >90 BPM Resp >20/minute Acutely Altered Mental Status Are patient's symptoms suggestive of a new infection, such as: -Pneumonia -Skin, Soft Tissue -Endocarditis -UTI -Bone, Joint Infection -Implantable Device -Acute Abdominal Infection -Wound Infection -Meningitis -Blood Stream Catheter Infection -Unknown Neurological Complaint Exam Altered Mental Status Complaint/Exam Current Mental Status: Confusion and Agitation Last Known Well: less confused a few days ago Onset: Gradual Duration: Acute on chronic confusion/agitation superimosed on dementia. Symptoms Are: Still present Timing: Constant Initial Severity: Mild Current Severity: Moderate Eye Deviation Present: No Character: Reports Confusion and Agitation Aggravating: Reports Unknown Alleviating: Reports None Associated Signs and Symptoms: Denies Dizziness, Weakness, Headache, Fever, Illness, Nuchal rigidity, Seizure, Nausea, Vomiting, Recently depressed or Trauma Cardiac Risk Factors: Reports None CVA Risk Factors: Reports None Related Surgical History: Reports None Carotid Bruit Present: No Nystagmus Present: No Gag Reflex Present: Yes Meningeal Signs Positive: No Focal Weakness: Present None Focal Sensory Loss: Present None Gait: Unable (not cooperative) Signs of Injury: Present Normal findings Thrombolytics Considered: No Review of Systems Review Of Systems Constitutional: Reports No symptoms Eyes: Reports No symptoms Ears, Nose, Mouth, Throat: Reports No symptoms Respiratory: Reports No symptoms Cardiac: Reports No symptoms GI: Reports No symptoms : Reports No symptoms Musculoskeletal: Reports No symptoms Skin: Reports No symptoms Neurological: Reports No symptoms Endocrine: Reports No symptoms Hematologic/Lymphatic: Reports No symptoms All Other Systems: Reviewed and Negative (ROS per son) [facility] Medical History (Updated 09/06/22 @ 22:10 by SHAUN HAQUE MD) Closed left hip fracture Dementia History of ankle fracture History of wrist fracture Hypertension Family History FATHER CHF (congestive heart failure) Social History Smoking and tobacco status: Former smoker How long ago did patient quit smokin+ Alcohol intake: never Counseling given: No Counseling provided: none Substance use type: does not use Counseling given: No Counseling provided: none Household members: family Housing: house Marital status: W / Daycare: no daycare USP: No Current occupational status: retired Pets and animals: No History of recent travel: No Do you think of yourself as: straight/heterosexual Current gender identity: female Seatbelt use: always Helmet use: No Drives intoxicated or rides with intoxicated driver service technician: No Water heater temperature set < 120 degrees: Yes Working smoke detector in home: Yes Fire extinguisher in home: Yes Carbon monoxide detector in home: Yes Firearms in home: No Surgical History History of repair of left hip joint Status post cholecystectomy Female Reproductive History Menstrual Hx Hysterectomy: No Hx Tubal Ligation: No Physical Exam Physical Exam Appearance: Reports Thin Ill-appearing: None Pain Distress: None Eyes: Reports VARGAS ENT: Reports Oropharynx normal Neck: Supple Respiratory: Reports Airway patent and Breath sounds clear Cardiovascular: Reports RRR and Pulses normal GI/: Reports Soft and Nontender Musculoskeletal: Reports Normal strength and ROM intact Skin: Reports Warm Neurological: Reports Sensation intact, Motor intact and Alert (not wanting to c ommunicate, no gross neuro deficits) Psychiatric: Reports Other (unable to properly exam, not cooperative) Interpretation Radiology Interpretation Radiology Interpretation By: Radiologist Radiology Results: No acute changes Exam Interpreted: CT Scan Xray Comments: head - atrophy, no acute changes Radiology Interpretation By: Radiologist Radiology Results: Negative Exam Interpreted: CXR EKG Interpretation Time of EKG #1: 14:49 Rate: Normal Rhythm: Sinus Ectopy: None [place]: NL ST Segment: Other Interpretation: RBBB, minor T wave changes Physician Notification Case Discussed Physician Notified: Hospitalist Admit/Transition Orders Entered by ED Provider: Yes Admit To: Observation Critical Care Note Critical Care Note Total Critical Care Time (mins): 0 Course Course Hematology/Chemistry: 09/06/22 14:53 12/21/22 14:53 Orders, Labs, Meds: Lab Review 09/06/22 09/06/22 09/06/22 14:53 14:53 14:53 WBC 7.12 RBC 4.17 L Hgb 11.5 L Hct 37.9 MCV 90.9 MCH 27.6 MCHC 30.3 L RDW Coeff of Summer 13.8 Plt Count 391 Immature Gran % (Auto) 0.3 Neut % (Auto) 76.4 H Lymph % (Auto) 15.7 [place] % (Auto) 6.5 Eos % (Auto) 0.7 Baso % (Auto) 0.4 Neut # (Auto) 5.4 Lymph # (Auto) 1.1 [place] # (Auto) 0.5 Eos # (Auto) 0.1 Baso # (Auto) 0.0 Immature Gran # (Auto) 0.0 Sodium 139.0 Potassium 2.80 L Chloride 97.0 L Carbon Dioxide 39.0 H Anion Gap 5.80 BUN 23.0 H Creatinine 0.60 Estimated GFR (MDRD) 96.00 BUN/Creatinine Ratio 38.33 Glucose 116.0 H Calcium 9.80 Magnesium 1.70 Total Bilirubin 0.80 AST 42.0 H ALT 10.0 Alkaline Phosphatase 86.0 Total Protein 8.20 Albumin 4.10 Globulin 4.10 Albumin/Globulin Ratio 1.00 TSH 1.820 Urine Color Urine Clarity Urine pH Ur Specific [place] Urine Protein Urine Glucose (UA) Urine Ketones Urine Blood Urine Nitrite Urine Bilirubin Urine Urobilinogen Ur Leukocyte Esterase Urine Microscopic RBC Urine Microscopic WBC Ur Squamous Epith Cells Urine Bacteria SARS CoV-2 RNA Rapid BHAVIN 09/06/22 09/06/22 17:25 17:36 WBC RBC Hgb Hct MCV MCH MCHC RDW Coeff of Summer Plt Count Immature Gran % (Auto) Neut % (Auto) Lymph % (Auto) [place] % (Auto) Eos % (Auto) Baso % (Auto) Neut # (Auto) Lymph # (Auto) [place] # (Auto) Eos # (Auto) Baso # (Auto) Immature Gran # (Auto) Sodium Potassium Chloride Carbon Dioxide Anion Gap BUN Creatinine Estimated GFR (MDRD) BUN/Creatinine Ratio Glucose Calcium Magnesium Total Bilirubin AST ALT Alkaline Phosphatase Total Protein Albumin Globulin Albumin/Globulin Ratio TSH Urine Color Yellow Urine Clarity Slightly Urine pH 6.0 Ur Specific [place] 1.025 Urine Protein Trace H Urine Glucose (UA) Negative Urine Ketones Trace H Urine Blood 1+ H Urine Nitrite Negative Urine Bilirubin 1+ H Urine Urobilinogen 1.0 H Ur Leukocyte Esterase 2+ H Urine Microscopic RBC 5-10 Urine Microscopic WBC 30-50 Ur Squamous Epith Cells 2-5 Urine Bacteria 3+ SARS CoV-2 RNA Rapid BHAVIN Negative Orders Category Date Time Status PLACE PATIENT OBSERVATION .TO MEDSURG (NON-MONITORED ADMISSION 09/06/22 19:31 Active BED) EKG-(ED ONLY) Stat CARDIO 09/06/22 14:42 Completed ACTIVITY .Up With Assistance CARE 09/06/22 19:31 Active CASE MANAGEMENT CONSULT ONCE CARE 09/06/22 19:33 Active INTAKE & OUTPUT Q8HR CARE 09/06/22 19:32 Active IP: INSERT SALINE LOCK ONCE CARE 09/06/22 19:32 Active VITAL SIGNS Q8HR CARE 09/06/22 19:32 Completed REGULAR DIET DIETARY 09/06/22 Breakfast Ordered BASIC METABOLIC PANEL DAILY@0600 LAB 09/07/22 06:00 Ordered BASIC METABOLIC PANEL DAILY@0600 LAB 09/08/22 06:00 Ordered CBC W/ AUTO DIFF DAILY@0600 LAB 09/07/22 06:00 Ordered CBC W/ AUTO DIFF DAILY@0600 LAB 09/08/22 06:00 Ordered CBC W/ AUTO DIFF Stat LAB 09/06/22 14:53 Completed COMPREHENSIVE METABOLIC PANEL Stat LAB 09/06/22 14:53 Completed MAGNESIUM Stat LAB 09/06/22 14:53 Completed SARS COV-2 RNA RAPID BHAVIN Stat LAB 09/06/22 17:36 Completed THYROID STIMULATING HORMONE Stat LAB 09/06/22 14:53 Completed URINALYSIS C & S IF INDICATED Stat LAB 09/06/22 17:25 Completed URINE CULTURE Stat LAB 09/06/22 17:25 Received Ceftriaxone/D5w 1 gm Premix [Rocephin 1 gm/50 ml D5w] MEDS 09/07/22 09:00 Discontinued 1 gm in 50 ml IV DAILY Enoxaparin Sodium [Lovenox] MEDS 09/07/22 09:00 Active 40 mg SUBCUT DAILY Lorazepam [Ativan] MEDS 09/06/22 16:12 Discontinued 1 mg IM ONCE ONE Potassium Chloride [K-Dur] MEDS 09/06/22 16:34 Discontinued 40 meq PO ONCE ONE Potassium Chloride [Potassium Chloride 20 Meq/100 ml MEDS 09/06/22 19:31 Active Premix] 40 meq in 200 ml IV ONCE Sodium Chloride 0.9% [Sodium Chloride] 1,000 ml MEDS 09/06/22 20:00 Active IV 75 mls/hr RESUSCITATION STATUS Routine OTHERS 09/06/22 19:31 Ordered CHEST, 1V AP ONLY Stat RADS 09/06/22 14:[address] HEAD W/O CONTRAST Stat RADS 09/06/22 15:48 Completed Medications Generic Name Dose Route Start Last Admin Trade Name Freq PRN Reason Stop Dose Admin Enoxaparin Sodium 40 mg 09/07/22 09:00 Enoxaparin Sodium 40 Mg/0.4 Ml Syr SUBCUT DAILY ASHWIN Sodium Chloride 1,000 mls @ 75 mls/hr 09/06/22 20:00 09/06/22 20:30 Sodium Chloride IV 75 mls/hr .[id number] ASHWIN Administration Potassium Chloride 40 meq in 200 mls @ 50 mls/hr 09/06/22 19:31 09/06/22 20:30 Potassium Chloride 20 Meq/100 Ml Premix IV 09/06/22 23:30 50 mls/hr ONCE ONE Administration CEFTRIAXONE/D5W 1 GM PREMIX 1 gm in 50 mls @ 75 mls/hr 09/06/22 21:26 Rocephin 1 Gm/50 Ml D5w IV 09/09/22 21:25 DAILY ASHWIN Lorazepam 0.5 mg 09/06/22 21:27 Lorazepam Inj 2 Mg/Ml Vial IVP Q4H PRN Agitation Nystatin 1 applic 09/07/22 09:00 Nystatin 15 Gm Powder TP BID ASHWIN Discontinued Medications Generic Name Dose Route Start Last Admin Trade Name Freq PRN Reason Stop Dose Admin CEFTRIAXONE/D5W 1 GM PREMIX 1 gm in 50 mls @ 75 mls/hr 09/07/22 09:00 Rocephin 1 Gm/50 Ml D5w IV 09/10/22 08:59 DAILY ASHWIN Labetalol HCl 20 mg 09/06/22 21:24 09/06/22 21:51 Labetalol Hcl 20 Mg/4 Ml Disp.Syrin IVP 09/06/22 21:25 20 mg ONCE STA Administration Lorazepam 1 mg 09/06/22 16:12 12/21/22 16:35 Lorazepam Inj 2 Mg/Ml Vial IM 09/06/22 16:13 1 mg ONCE ONE Administration Potassium Chloride 40 meq 09/06/22 16:34 09/06/22 18:27 Potassium Chloride 20 Meq Tab PO 09/06/22 16:35 Not Given ONCE ONE Vital Signs: Temp Pulse Resp BP Pulse Ox 09/06/22 19:45 87 19 164/116 H 95 09/06/22 14:22 97.7 F 82 14 165/73 H 97 Discharge Plan Discharge Patient Disposition: PLACED OBSERVATION Discharge Problem: Acute on chronic alteration in mental status, Acute UTI, Hypokalemia Dementia Qualifiers: Dementia type: Alzheimer's Alzheimer's disease onset: unspecified onset Dementia severity: moderate Did you review [place] [employer]ENT[employer] MECHANIC?: Not Applicable ED Provider: SHAUN HAQUE Condition: Stable Physician Progress Note: [Advanced dementia, probably Alzheimer's, UTI, hypokalemia (probably poor diet). She would benefit from a long term with dementia unit.]
[2022-09-06 14:58] LABS: BASOPHILS % (AUTO) 0.4 % (0.0-3.0); EOSINOPHILS # (AUTO) 0.1 K/ul (0.0-0.7); EOSINOPHILS % (AUTO) 0.7 % (0.0-7.0); HEMATOCRIT 37.9 % (37.0-47.0); HEMOGLOBIN 11.5 g/dl (12.0-16.0); IMMATURE GRANULOCYTE % (AUTO) 0.3 % (0.0-5.0); LYMPHOCYTES # (AUTO) 1.1 K/uL (0.60-3.4); LYMPHOCYTES % (AUTO) 15.7 (10.0-50.0); MEAN CORPUSCULAR HEMOGLOBIN 27.6 pg (27.0-31.0); MEAN CORPUSCULAR HGB CONC 30.3 (31.8-35.4); MEAN CORPUSCULAR VOLUME 90.9 fl (81.0-99.0); MONOCYTES # (AUTO) 0.5 K/uL (0.4-2.0); MONOCYTES % (AUTO) 6.5 (0-10); NEUTROPHILS # (AUTO) 5.4 K/ul (2.0-6.9); NEUTROPHILS % (AUTO) 76.4 % (42.2-75.2); PLATELET COUNT 391 10^3/uL (140-440); RDW COEFFICIENT OF VARIATION 13.8 % (11.6-14.8); RED BLOOD COUNT 4.17 10^6/ul (4.20-5.40); WHITE BLOOD COUNT 7.12 K/ul (4.6-10.2)
--- NOTE | 2022-09-06 15:10 | DI ---
EXAM: CHEST FRONTAL VIEW HISTORY: Dyspnea COMPARISON: None FINDINGS: Heart size approaches upper limit normal. There is mild to moderate atherosclerotic disea se. No acute infiltrates are seen. No vascular congestion. There is no consolidation, visible pleu ral fluid or pneumothorax. Bones reveal no acute abnormality. IMPRESSION: Mildly prominent heart size. Atherosclerotic disease. No acute cardiopulmonary process .
[2022-09-06 15:19] LABS: ALBUMIN 4.1 g/dL (3.5-5.0); BILIRUBIN,TOTAL 0.8 mg/dL (0.2-1.3); CALCIUM 9.8 mg/dL (8.4-10.2); CREATININE 0.6 mg/dL (0.60-1.30); TOTAL PROTEIN 8.2 g/dL (6.3-8.2)
[2022-09-06 15:32] LABS: POTASSIUM 2.8 mmol/L (3.5-5.1)
[2022-09-06] MEDS ORDERED: KLOR-CON 8 MEQ PO ONE (16:12)
[2022-09-06] MEDS ORDERED: ATIVAN IM ONE (16:12)
[2022-09-06] MEDS ORDERED: K-DUR PO ONE (16:34)
[2022-09-06 17:35] LABS: BILIRUBIN,URINE 1+ (NEGATIVE); CLARITY,URINE Slightly (CLEAR); COLOR,URINE Yellow (YELLOW); GLUCOSE, URINE (UA) Negative (NEGATIVE); KETONES,URINE Trace (NEGATIVE); LEUKOCYTE ESTERASE ,URINE 2+ (NEGATIVE); NITRITE,URINE Negative (NEGATIVE); PROTEIN,URINE Trace (NEGATIVE); URINE, BLOOD 1+ (NEGATIVE)
[2022-09-06 17:38] LABS: BACTERIA,URINE 3+ (NOT PRESENT); URINE WBC, MICROSCOPIC 30-50 (0-2)
[2022-09-06 17:58] LABS: THYROID STIMULATING HORMONE 1.82 uIU/L (0.465-4.68)
--- NOTE | 2022-09-06 18:09 | CT ---
EXAM: CT BRAIN HISTORY: Altered mental status TECHNIQUE: CT brain without intravenous contrast. 5-mm axial sections with Reformations. COMPARISON: 10/27/2017 FINDINGS: There is generalized cerebral volume loss. There is severe periventricular and deep white matter low attenuation which although nonspecific is suggestive of chronic microvascular ischemic indu nge. These involutional changes have noticeably worsened since previous exam. There is a newly deve loped band of encephalomalacia in the medial left occipital lobe consistent with previous infarction. Within this complex background, there is no clear CT evidence of recent large vessel distribution i schemic infarction. No intracranial hemorrhage, mass or mass effect is seen. No acute ventriculomeg venessa. Basal cisterns are patent. The cranium is intact. Mastoid air cells are aerated and the visua lized paranasal sinuses are clear. IMPRESSION: Significant involutional changes and previous infarction. No convincing CT evidence of recent large vessel distribution ischemic infarction. No intracranial hemorrhage or mass identified. Consider correlation with MRI if indicated. - - - - - All CT scans are performed using dose optimization techniques as appropriate to the performed exam an d include at least one of the following: Automated exposure control, adjustment of the mA and/or kV according t o size, and the use of iterative reconstruction technique.
[2022-09-06 18:11] LABS: SARS COV-2 RNA RAPID NAAT NEGATIVE (NEGATIVE)
[2022-09-06] MEDS ORDERED: POTASSIUM CHLORIDE 20 MEQ/100 ML PREMIX 40 MEQ/200 ML BAG IV ONE (19:31)
[2022-09-06] MEDS ORDERED: ATIVAN IVP PRN (19:37)
[2022-09-06] MEDS: SODIUM CHLORIDE 1,000 ML IV SCH (20:30)
[2022-09-06] MEDS ORDERED: TRANDATE IVP STA (21:24)
[2022-09-06] MEDS ORDERED: ROCEPHIN 1 GM/50 ML D5W 1 GM/50 ML BAG IV SCH (21:26)
[2022-09-06 22:13] VITALS: BMI 17.6
[2022-09-07] MEDS: ATIVAN IVP PRN (00:48)
[2022-09-07 05:13] LABS: BASOPHILS % (AUTO) 0.4 % (0.0-3.0); EOSINOPHILS # (AUTO) 0.1 K/ul (0.0-0.7); EOSINOPHILS % (AUTO) 1.7 % (0.0-7.0); HEMATOCRIT 32.7 % (37.0-47.0); HEMOGLOBIN 9.8 g/dl (12.0-16.0); IMMATURE GRANULOCYTE % (AUTO) 0.3 % (0.0-5.0); LYMPHOCYTES # (AUTO) 1.3 K/uL (0.60-3.4); LYMPHOCYTES % (AUTO) 17.7 (10.0-50.0); MEAN CORPUSCULAR HEMOGLOBIN 27.5 pg (27.0-31.0); MEAN CORPUSCULAR VOLUME 91.6 fl (81.0-99.0); MONOCYTES # (AUTO) 0.6 K/uL (0.4-2.0); MONOCYTES % (AUTO) 8.7 (0-10); NEUTROPHILS # (AUTO) 5.2 K/ul (2.0-6.9); NEUTROPHILS % (AUTO) 71.2 % (42.2-75.2); PLATELET COUNT 308 10^3/uL (140-440); RDW COEFFICIENT OF VARIATION 13.9 % (11.6-14.8); RED BLOOD COUNT 3.57 10^6/ul (4.20-5.40); WHITE BLOOD COUNT 7.25 K/ul (4.6-10.2)
[2022-09-07 05:27] LABS: BLOOD UREA NITROGEN 24.2 mg/dL (7-17); CALCIUM 9.34 mg/dL (8.4-10.2); CARBON DIOXIDE 35.9 mmol/L (22-30.0); CHLORIDE 99.6 mmol/L (98-107); CREATININE 0.82 mg/dL (0.60-1.30); POTASSIUM 3.55 mmol/L (3.5-5.1); SODIUM 139.4 mmol/L (134.5-145)
[2022-09-07] MEDS ORDERED: TRANDATE IVP ONE (06:26)
[2022-09-07] MEDS: LOVENOX SUBCUT SCH (08:18)
[2022-09-07] MEDS: NYSTOP POWDER TP SCH ×2 (08:20→21:02)
--- NOTE | 2022-09-07 08:54 | PCM.PROG ---
Date Seen by Provider: 09/07/22 Time Seen by Provider: 08:53 Subjective: Patient less agitated this morning. She did receive ativan 8 hours ago. Objective: Vitals: T=97.3 F, P=75, R=16, WQ=007/72, SPO2=96 Patient lethargic, difficult to arouse from sleep. Appears frail. HEENT: []Oral mucosa moist. Neck: [] Lungs: [] Chest clear. BS equal. CVS: [] RRR. No peripheral edema. Abdomen: [] Soft, nondistended, nontender. Extremities: [] Neurological: [] Moves all extremities. Very lethargic. Skin: [] Lab/Tests/Diagnostic Imaging: [] (1) Dementia: Status: Acute Code(s): F03.90 - Unspecified dementia, unspecified severity, without behavioral disturbance, psychotic disturbance, mood disturbance, and anxiety SNOMED Code(s): 30533427 Assessment: Dementia is reportedly worsening and family is no longer able to care for patie nt at home. (2) Acute UTI: Status: Acute Code(s): N39.0 - Urinary tract infection, site not specified SNOMED Code(s): 617827017 Assessment: Preliminary cultures with heavy growth of gram positive cocci;final ID and sensitivity pending. (3) Hypokalemia: Status: Acute Code(s): E87.6 - Hypokalemia SNOMED Code(s): 64291173 Assessment: Near corrected. (4) Acute on chronic alteration in mental status: Status: Acute Code(s): R41.82 - Altered mental status, unspecified SNOMED Code(s): 844215786 Assessment: Limit ativan use, patient appears to be sensitive to it. (5) Elevated blood pressure reading without diagnosis of hypertension: Status: Acute Code(s): R03.0 - Elevated blood-pressure reading, without diagnosis of hypertension SNOMED Code(s): 213675065 Assessment: BP has remained mildly elevated. Plan: Will change status from observation to inpatient. She will require chcf placement during this admission. Consult case management. Continue rocephin pending final urine culture results. Add low dose lisinopril for elevated BP. One further dose of Kdur for hypokalemia. Limit use of ativan for treatment of agitation.
[2022-09-07] MEDS ORDERED: ROCEPHIN 1 GM/50 ML D5W 1 GM/50 ML BAG IV SCH (09:00)
[2022-09-07] MEDS ORDERED: K-DUR PO ONE (09:01)
[2022-09-07] MEDS ORDERED: POTASSIUM CHLORIDE 10 MEQ/100 ML PREMIX 10 MEQ/100 ML BAG IV ONE ×4 (10:35→13:30)
[2022-09-07] MEDS ORDERED: POTASSIUM CHLORIDE 20 MEQ/100 ML PREMIX 20 MEQ/100 ML BAG IV ONE (11:00)
[2022-09-07] MEDS: ZESTRIL PO SCH ×2 (11:07→12:01)
[2022-09-07] MEDS: SODIUM CHLORIDE 1,000 ML IV SCH (14:20)
[2022-09-07] MEDS: ROCEPHIN 1 GM/50 ML D5W 1 GM/50 ML BAG IV SCH (20:58)
[2022-09-08] MEDS: SODIUM CHLORIDE 1,000 ML IV SCH ×2 (03:47→16:21)
[2022-09-08 05:09] LABS: BASOPHILS % (AUTO) 0.6 % (0.0-3.0); EOSINOPHILS # (AUTO) 0.2 K/ul (0.0-0.7); EOSINOPHILS % (AUTO) 2.2 % (0.0-7.0); HEMATOCRIT 31.9 % (37.0-47.0); HEMOGLOBIN 8.9 g/dl (12.0-16.0); IMMATURE GRANULOCYTE % (AUTO) 0.3 % (0.0-5.0); LYMPHOCYTES # (AUTO) 1.3 K/uL (0.60-3.4); LYMPHOCYTES % (AUTO) 18.6 (10.0-50.0); MEAN CORPUSCULAR HEMOGLOBIN 27.1 pg (27.0-31.0); MEAN CORPUSCULAR HGB CONC 27.9 (31.8-35.4); MONOCYTES # (AUTO) 0.5 K/uL (0.4-2.0); MONOCYTES % (AUTO) 7.4 (0-10); NEUTROPHILS # (AUTO) 4.8 K/ul (2.0-6.9); NEUTROPHILS % (AUTO) 70.9 % (42.2-75.2); PLATELET COUNT 278 10^3/uL (140-440); RDW COEFFICIENT OF VARIATION 14.2 % (11.6-14.8); RED BLOOD COUNT 3.29 10^6/ul (4.20-5.40); WHITE BLOOD COUNT 6.72 K/ul (4.6-10.2)
[2022-09-08 05:22] LABS: BLOOD UREA NITROGEN 21.4 mg/dL (7-17); CALCIUM 8.89 mg/dL (8.4-10.2); CARBON DIOXIDE 30.5 mmol/L (22-30.0); CHLORIDE 105.5 mmol/L (98-107); CREATININE 0.62 mg/dL (0.60-1.30); POTASSIUM 3.64 mmol/L (3.5-5.1); SODIUM 137.6 mmol/L (134.5-145)
[2022-09-08] MEDS: LOVENOX SUBCUT SCH (08:41)
[2022-09-08] MEDS: NYSTOP POWDER TP SCH ×2 (08:41→20:19)
[2022-09-08] MEDS: ZESTRIL PO SCH ×2 (08:49→20:02)
[2022-09-08] MEDS: ATIVAN IVP PRN (19:43)
[2022-09-08] MEDS: ROCEPHIN 1 GM/50 ML D5W 1 GM/50 ML BAG IV SCH (20:02)
--- NOTE | 2022-09-08 20:16 | PCM.PROG ---
Date Seen by Provider: 09/08/22 Time Seen by Provider: 09:00 Subjective: CC - Not communicating as before. Objective: Vitals: T=97 F, P=71, R=18, PY=805/86, SPO2=97 HEENT: [WNL] Neck: [supple] Lungs: [clear] CVS: [RRR] Abdomen: [soft] Extremities: [intact] Neurological: [Resting, no acute change noted.] Skin: [WNL] Lab/Tests/Diagnostic Imaging: [See] (1) Dementia: Status: Acute Code(s): F03.90 - Unspecified dementia, unspecified severity, without behavioral disturbance, psychotic disturbance, mood disturbance, and anxiety SNOMED Code(s): 59824424 Assessment: Unchanged. She still refuses to take medications. (2) Acute UTI: Status: Acute Code(s): N39.0 - Urinary tract infection, site not specified SNOMED Code(s): 761814566 Assessment: Rocephin. Culture pending. (3) Hypokalemia: Status: Acute Code(s): E87.6 - Hypokalemia SNOMED Code(s): 17841725 Assessment: Corrected. (4) Acute on chronic alteration in mental status: Status: Acute Code(s): R41.82 - Altered mental status, unspecified SNOMED Code(s): 540374055 Assessment: residential placment pending. (5) Elevated blood pressure reading without diagnosis of hypertension: Status: Acute Code(s): R03.0 - Elevated blood-pressure reading, without diagnosis of hypertension SNOMED Code(s): 676143965 Assessment: Monitoring, limitations due to refusal to take oral med. Plan: Continue same management.
[2022-09-09] MEDS: SODIUM CHLORIDE 1,000 ML IV SCH ×2 (05:43→13:52)
[2022-09-09] MEDS: LOVENOX SUBCUT SCH (08:43)
[2022-09-09] MEDS: ZESTRIL PO SCH ×2 (08:43→20:15)
[2022-09-09] MEDS: NYSTOP POWDER TP SCH ×2 (08:44→20:11)
--- NOTE | 2022-09-09 10:30 | PCM.PROG ---
Date Seen by Provider: 09/09/22 Time Seen by Provider: 09:00 Subjective: CC - No complaints today, dementia. Objective: Vitals: T=96.9 F, P=67, R=16, FS=764/76, SPO2=98 HEENT: [WNL Neck: [supple] Lungs: [clear] CVS: [RRR] Abdomen: [soft] Extremities: [intact] Neurological: [dementia, somewhat more verbal today] Skin: [wnl] Lab/Tests/Diagnostic Imaging: [see labs] (1) Dementia: Status: Acute Code(s): F03.90 - Unspecified dementia, unspecified severity, without behavioral disturbance, psychotic disturbance, mood disturbance, and anxiety SNOMED Code(s): 17094241 Assessment: Chronic problem. She may start to take med, has been refusing. (2) Acute UTI: Status: Acute Code(s): N39.0 - Urinary tract infection, site not specified SNOMED Code(s): 229680088 Assessment: Urine culture should be back tomorrow, on rocephin. (3) Hypokalemia: Status: Acute Code(s): E87.6 - Hypokalemia SNOMED Code(s): 34659961 Assessment: Resolved, dietary. (4) Acute on chronic alteration in mental status: Status: Acute Code(s): R41.82 - Altered mental status, unspecified SNOMED Code(s): 151450592 Assessment: Somewhat improved, saying a few words, taking food and drink with assistance. (5) Elevated blood pressure reading without diagnosis of hypertension: Status: Acute Code(s): R03.0 - Elevated blood-pressure reading, without diagnosis of hypertension SNOMED Code(s): 724078290 Assessment: Ave 150's systolic on med. Plan: No change in tx.
[2022-09-09] MEDS: ATIVAN IVP PRN (20:08)
[2022-09-09] MEDS: ROCEPHIN 1 GM/50 ML D5W 1 GM/50 ML BAG IV SCH (20:10)
[2022-09-10] MEDS: SODIUM CHLORIDE 1,000 ML IV SCH ×3 (03:45→17:52)
[2022-09-10] MEDS: ZESTRIL PO SCH ×2 (08:36→20:18)
[2022-09-10] MEDS: LOVENOX SUBCUT SCH (08:36)
[2022-09-10] MEDS: NYSTOP POWDER TP SCH ×2 (08:36→20:55)
--- NOTE | 2022-09-10 09:29 | PCM.PROG ---
Date Seen by Provider: 09/10/22 Time Seen by Provider: 09:26 Subjective: dx. dementia, uti Objective: Vitals: T=96.8 F, P=101, R=18, XM=626/78, SPO2=97 HEENT: []conjunctiva clear Neck: []supple Lungs: [] clear CVS: []rrr Abdomen: []nontender Extremities: []warm and dry Neurological: []oriented x 1 Skin: []pink Lab/Tests/Diagnostic Imaging: [] K+ level pending blood draw today (1) Dementia: Status: Acute Code(s): F03.90 - Unspecified dementia, unspecified severity, without behavioral disturbance, psychotic disturbance, mood disturbance, and anxiety SNOMED Code(s): 51624328 (2) Acute UTI: Status: Acute Code(s): N39.0 - Urinary tract infection, site not specified SNOMED Code(s): 040327698 (3) Hypokalemia: Status: Acute Code(s): E87.6 - Hypokalemia SNOMED Code(s): 14655766 (4) Acute on chronic alteration in mental status: Status: Acute Code(s): R41.82 - Altered mental status, unspecified SNOMED Code(s): 932203881 (5) Elevated blood pressure reading without diagnosis of hypertension: Status: Acute Code(s): R03.0 - Elevated blood-pressure reading, without diagnosis of hypertension SNOMED Code(s): 229639791 Plan: discharge planning for NH placement, continue assisted feeding, obtain repeat u/a care to Dr Esposito at 19:00
[2022-09-10 14:36] LABS: BASOPHILS % (AUTO) 0.3 % (0.0-3.0); EOSINOPHILS # (AUTO) 0.1 K/ul (0.0-0.7); EOSINOPHILS % (AUTO) 1.6 % (0.0-7.0); HEMATOCRIT 30.3 % (37.0-47.0); HEMOGLOBIN 9.2 g/dl (12.0-16.0); IMMATURE GRANULOCYTE % (AUTO) 0.3 % (0.0-5.0); LYMPHOCYTES # (AUTO) 1.1 K/uL (0.60-3.4); LYMPHOCYTES % (AUTO) 14.4 (10.0-50.0); MEAN CORPUSCULAR HEMOGLOBIN 27.5 pg (27.0-31.0); MEAN CORPUSCULAR HGB CONC 30.4 (31.8-35.4); MEAN CORPUSCULAR VOLUME 90.7 fl (81.0-99.0); MONOCYTES # (AUTO) 0.6 K/uL (0.4-2.0); MONOCYTES % (AUTO) 7.9 (0-10); NEUTROPHILS # (AUTO) 5.7 K/ul (2.0-6.9); NEUTROPHILS % (AUTO) 75.5 % (42.2-75.2); PLATELET COUNT 250 10^3/uL (140-440); RDW COEFFICIENT OF VARIATION 13.9 % (11.6-14.8); RED BLOOD COUNT 3.34 10^6/ul (4.20-5.40); WHITE BLOOD COUNT 7.58 K/ul (4.6-10.2)
[2022-09-10 14:48] LABS: ALANINE AMINOTRANSFERASE 8.4 U/L (0-35); ALBUMIN 2.96 g/dL (3.5-5.0); ALKALINE PHOSPHATASE 60.6 U/L (53-141); ASPARTATE AMINO TRANSFERASE 24.6 U/L (14-36); BILIRUBIN,TOTAL 0.3 mg/dL (0.2-1.3); CALCIUM 8.61 mg/dL (8.4-10.2); CARBON DIOXIDE 32.2 mmol/L (22-30.0); CHLORIDE 103.4 mmol/L (98-107); CREATININE 0.6 mg/dL (0.60-1.30); GLUCOSE 113.8 mg/dL (74-106); POTASSIUM 3.68 mmol/L (3.5-5.1); SODIUM 135.8 mmol/L (134.5-145); TOTAL PROTEIN 5.97 g/dL (6.3-8.2)
[2022-09-10 17:28] LABS: BILIRUBIN,URINE Negative (NEGATIVE); CLARITY,URINE Clear (CLEAR); COLOR,URINE Yellow (YELLOW); GLUCOSE, URINE (UA) Negative (NEGATIVE); KETONES,URINE Negative (NEGATIVE); LEUKOCYTE ESTERASE ,URINE Negative (NEGATIVE); NITRITE,URINE Negative (NEGATIVE); PROTEIN,URINE Negative (NEGATIVE); URINE, BLOOD Trace-intact (NEGATIVE); UROBILINOGEN,URINE 0.2 (0.2)
[2022-09-10 17:32] LABS: RENAL EPITHELIAL CELLS,URINE 0-2 (NOT PRESENT); SQUAMOUS EPITHELIAL CELL,UR 0-2 (0-5); URINE WBC, MICROSCOPIC 0-2 (0-2)
[2022-09-10] MEDS ORDERED: ROCEPHIN 1 GM/50 ML D5W 1 GM/50 ML BAG IV SCH (21:00)
[2022-09-11] MEDS: SODIUM CHLORIDE 1,000 ML IV SCH ×2 (04:43→08:55)
[2022-09-11 05:01] LABS: BASOPHILS % (AUTO) 0.4 % (0.0-3.0); EOSINOPHILS # (AUTO) 0.2 K/ul (0.0-0.7); EOSINOPHILS % (AUTO) 3.1 % (0.0-7.0); HEMATOCRIT 29.7 % (37.0-47.0); HEMOGLOBIN 8.9 g/dl (12.0-16.0); IMMATURE GRANULOCYTE % (AUTO) 0.1 % (0.0-5.0); LYMPHOCYTES # (AUTO) 1.5 K/uL (0.60-3.4); LYMPHOCYTES % (AUTO) 19.8 (10.0-50.0); MEAN CORPUSCULAR HEMOGLOBIN 27.2 pg (27.0-31.0); MEAN CORPUSCULAR VOLUME 90.8 fl (81.0-99.0); MONOCYTES # (AUTO) 0.6 K/uL (0.4-2.0); MONOCYTES % (AUTO) 7.5 (0-10); NEUTROPHILS # (AUTO) 5.3 K/ul (2.0-6.9); NEUTROPHILS % (AUTO) 69.1 % (42.2-75.2); PLATELET COUNT 237 10^3/uL (140-440); RDW COEFFICIENT OF VARIATION 14.2 % (11.6-14.8); RED BLOOD COUNT 3.27 10^6/ul (4.20-5.40); WHITE BLOOD COUNT 7.73 K/ul (4.6-10.2)
[2022-09-11 05:12] LABS: BLOOD UREA NITROGEN 17.4 mg/dL (7-17); CALCIUM 8.6 mg/dL (8.4-10.2); CARBON DIOXIDE 31.4 mmol/L (22-30.0); CHLORIDE 104.4 mmol/L (98-107); CREATININE 0.49 mg/dL (0.60-1.30); GLUCOSE 101.8 mg/dL (74-106); POTASSIUM 3.25 mmol/L (3.5-5.1); SODIUM 135.6 mmol/L (134.5-145)
[2022-09-11] MEDS: LOVENOX SUBCUT SCH (08:33)
[2022-09-11] MEDS: ZESTRIL PO SCH ×2 (08:33→20:13)
[2022-09-11] MEDS: NYSTOP POWDER TP SCH ×2 (08:33→20:26)
[2022-09-11] MEDS ORDERED: K-DUR PO ONE (08:52)
--- NOTE | 2022-09-11 08:56 | PCM.PROG ---
Date Seen by Provider: 09/11/22 Time Seen by Provider: 08:53 Subjective: No complaints. Reportedly eating find though needs to be fed. Objective: Vitals: T=97.3 F, P=89, R=18, TW=548/102, SPO2=98 Patient appears comfortable. She is alert and confused. HEENT: [] Neck: [] Lungs: [] Clear. BS equal. CVS: [] RRR. No peripheral edema. Abdomen: [] Soft, nontender, nondistended. Extremities: [] Neurological: [] Skin: [] Lab/Tests/Diagnostic Imaging: [] (1) Dementia: Status: Acute Code(s): F03.90 - Unspecified dementia, unspecified severity, without behavioral disturbance, psychotic disturbance, mood disturbance, and anxiety SNOMED Code(s): 06790692 (2) Acute UTI: Status: Acute Code(s): N39.0 - Urinary tract infection, site not specified SNOMED Code(s): 430471410 Assessment: Patient has had 6 days of IV antibiotics. Final cultures noted. (3) Hypokalemia: Status: Acute Code(s): E87.6 - Hypokalemia SNOMED Code(s): 78024374 Assessment: Potassium low this morning. (4) Acute on chronic alteration in mental status: Status: Acute Code(s): R41.82 - Altered mental status, unspecified SNOMED Code(s): 709423086 (5) Elevated blood pressure reading without diagnosis of hypertension: Status: Acute Code(s): R03.0 - Elevated blood-pressure reading, without diagnosis of hypertension SNOMED Code(s): 489900504 Plan: Saline lock IV fluids. Replace potassium and place patient on daily oral potassium supplement. DC rocephin. No further antibiotics. [facility].
[2022-09-12 05:09] VITALS: BP 147/76; TEMP 97.8
[2022-09-12 05:14] LABS: BASOPHILS # (AUTO) 0.1 K/uL (0-0.2); BASOPHILS % (AUTO) 0.7 % (0.0-3.0); EOSINOPHILS # (AUTO) 0.2 K/ul (0.0-0.7); EOSINOPHILS % (AUTO) 2.7 % (0.0-7.0); HEMATOCRIT 27.5 % (37.0-47.0); HEMOGLOBIN 8.3 g/dl (12.0-16.0); IMMATURE GRANULOCYTE % (AUTO) 0.3 % (0.0-5.0); LYMPHOCYTES # (AUTO) 1.3 K/uL (0.60-3.4); LYMPHOCYTES % (AUTO) 18.2 (10.0-50.0); MEAN CORPUSCULAR HEMOGLOBIN 27.2 pg (27.0-31.0); MEAN CORPUSCULAR HGB CONC 30.2 (31.8-35.4); MEAN CORPUSCULAR VOLUME 90.2 fl (81.0-99.0); MONOCYTES # (AUTO) 0.7 K/uL (0.4-2.0); NEUTROPHILS # (AUTO) 5.1 K/ul (2.0-6.9); NEUTROPHILS % (AUTO) 69.1 % (42.2-75.2); PLATELET COUNT 215 10^3/uL (140-440); RDW COEFFICIENT OF VARIATION 14.3 % (11.6-14.8); RED BLOOD COUNT 3.05 10^6/ul (4.20-5.40); WHITE BLOOD COUNT 7.35 K/ul (4.6-10.2)
[2022-09-12 05:28] LABS: BLOOD UREA NITROGEN 23.4 mg/dL (7-17); CALCIUM 8.75 mg/dL (8.4-10.2); CARBON DIOXIDE 33.6 mmol/L (22-30.0); CHLORIDE 103.3 mmol/L (98-107); CREATININE 0.68 mg/dL (0.60-1.30); GLUCOSE 97.9 mg/dL (74-106); SODIUM 134.2 mmol/L (134.5-145)
[2022-09-12 05:42] LABS: POTASSIUM 3.56 mmol/L (3.5-5.1)
[2022-09-12] MEDS ORDERED: K-DUR PO SCH (08:30)
[2022-09-12] MEDS: NYSTOP POWDER TP SCH (09:49)
[2022-09-12] MEDS: ZESTRIL PO SCH (09:49)
[2022-09-12] MEDS: LOVENOX SUBCUT SCH (09:49)
--- NOTE | 2022-09-12 12:32 | PCM.DC ---
Final Diagnosis: dementia, uti, hypokalemia 40min spent on discharge summary Physical Exam Appearance: Well-appearing and No pain distress Ill-appearing: None Pain Distress: None Eyes: Conjunctiva clear ENT: Oropharynx normal Neck: Supple Respiratory: Airway patent, Breath sounds clear and Breath sounds equal Cardiovascular: RRR GI/: Soft and Nontender Musculoskeletal: No calf tenderness Skin: Warm and Dry Neurological: Alert Psychiatric: Affect appropriate (1) Dementia: Status: Acute Code(s): F03.90 - Unspecified dementia, unspecified severity, without behavioral disturbance, psychotic disturbance, mood disturbance, and anxiety SNOMED Code(s): 52926234 Qualifiers: Alzheimer's disease onset: unspecified onset Dementia severity: moderate Dementia type: Alzheimer's (2) Acute UTI: Status: Acute Code(s): N39.0 - Urinary tract infection, site not specified SNOMED Code(s): 995240806 (3) Hypokalemia: Status: Acute Code(s): E87.6 - Hypokalemia SNOMED Code(s): 28452893 (4) Acute on chronic alteration in mental status: Status: Acute Code(s): R41.82 - Altered mental status, unspecified SNOMED Code(s): 058569967 (5) Elevated blood pressure reading without diagnosis of hypertension: Status: Acute Code(s): R03.0 - Elevated blood-pressure reading, without diagnosis of hypertension SNOMED Code(s): 393187361 Reason for Hospitalization: uti, unable to provide self care Prognosis/Condition at Discharge: fair Medications at Discharge: home meds, lisinopril Lab/Diagnostics: K+ 3.5, wbc 7.3, Hb 8.3 Education Provided to Patient and Family: self care and transferring Follow-ups: see your doctor for med review Discharge Disposition: Assisted Care Facility Hospital Course: improved mentation and awareness Plan: discharge to [facility]
== END 2022-09-12 14:00 | DRG 948 ==
LOC: ED 14:21 → INTOOBSV 19:58 → OBSVTOIN 19:58 → MEDSURG A 19:58
PROVIDERS: ADMIT Emergency Medicine; ATTEND Emergency Medicine Emergency Medical Services
DX: R03.0 Elevated blood-pressure reading, without diagnosis of hypertension; F03.B11 Unspecified dementia, moderate, with agitation; R41.82 Altered mental status, unspecified; Z20.822 Contact with and (suspected) exposure to COVID-19; E87.6 Hypokalemia; N39.0 Urinary tract infection, site not specified